=== PATIENT | male | born 1975 | race African-American/Black ===

== ENCOUNTER 2016-11-11 11:15 | Emergency (ER) | payer SELFPAY ==
[~2016-11-11] VITALS: Ht 165.1 cm; Wt 72.6 kg
[2016-11-11] MEDS ORDERED: diphenhydrAMINE 50 MG/ML VIAL IVP ONE (12:30)
[2016-11-11] MEDS ORDERED: IV NORMAL SALINE 1000ML BAG 1,000 ML IV ONE (12:30)
[2016-11-11] MEDS ORDERED: PROCHLORPERAZINE 10 MG/2 ML VIAL. IV ONE (12:30)
[2016-11-11 14:00] VITALS: BP 112/76
--- NOTE | 2016-11-11 14:09 | PHYS DOC ---
Past Medical History Past Medical History: Arthritis, Migraines Past Surgical History: Appendectomy, Knee Replacement Alcohol Use: None Drug Use: None Adult General Chief Complaint Chief Complaint: HEADACHE HPI HPI Patient is a 41 year old male who presents self complains of migraines similar to previous. Patient has been expressing migraines since the teenage years. Patient is also being his first symptoms of dehydration. Patient has no other complaints. Review of Systems Review of Systems Constitutional: Denies fever or chills [] Eyes: mild blurry vision HENT: Denies nasal congestion or sore throat [] denies neck pain Respiratory: Denies cough or shortness of breath [] Cardiovascular: No chest pain GI: Denies abdominal pain, Musculoskeletal: Denies back pain or joint pain [] Integument: Denies rash or skin lesions [] Neurologic: Headache. Denies focal weakness. Denies problems with ambulation Current Medications Current Medications Current Medications Medications (Trade) Dose Ordered Sig/Jorge Start Time Stop Time Status Last Admin Dose Admin Diphenhydramine HCl (Benadryl) 25 mg 1X ONCE 11/11/16 12:30 11/11/16 12:31 DC 11/11/16 12:17 25 MG Prochlorperazine Edisylate (Compazine) 10 mg 1X ONCE 11/11/16 12:30 11/11/16 12:31 DC 11/11/16 12:17 10 MG Sodium Chloride 1,000 ml @ 1,000 mls/hr 1X ONCE 11/11/16 12:30 11/11/16 13:29 DC 11/11/16 12:18 1,000 MLS/HR Allergies Allergies Allergies Coded Allergies Type Severity Reaction Last Updated Verified No Known Drug Allergies 11/11/16 No Physical Exam Physical Exam Constitutional: Well developed, well nourished, no acute distress, non-toxic appearance. [] HENT: Normocephalic, atraumatic, oropharynx moist, no oral exudates, nose normal. [] Eyes: PERRLA, EOMI, conjunctiva normal, no discharge. [] Neck: Normal range of motion, no tenderness, supple, no stridor. No meningeal signs, no LAD Cardiovascular:Heart rate regular rhythm, no murmur normal perfusion Lungs & Thorax: Bilateral breath sounds clear to auscultation [] Abdomen: Bowel sounds normal, soft, no tenderness, no masses, no pulsatile masses. [] Skin: Warm, dry, no erythema, no rash. [] Back: Normal range of motion Extremities: No tenderness, no cyanosis, no clubbing, ROM intact, no edema. [] Neurologic: Alert and oriented X 3, normal motor function, no focal deficits noted. [] Psychologic: Affect normal, judgement normal, mood normal. [] Current Patient Data Vital Signs Vital Signs Date Time Temp Pulse Resp B/P (MAP) Pulse Ox O2 Delivery O2 Flow Rate FiO2 11/11/16 11:40 98.5 58 18 113/71 (85) 98 Room Air 98.5 EKG EKG [] Radiology/Procedures Radiology/Procedures [] Course & Med Decision Making Course & Med Decision Making Pertinent Labs and Imaging studies reviewed. (See chart for details) 1407 patient states at this time his headache is relieved, feels ready to go home. Patient is to be discharged in stable and improved condition. [] Dragon Disclaimer Dragon Disclaimer This electronic medical record was generated, in whole or in part, using a voice recognition dictation system. Departure Departure Impression: Primary Impression: Migraine Additional Impression: Dehydration Disposition: 01 HOME, SELF-CARE Condition: IMPROVED Referrals: NO PCP (PCP) please follow up with your pcp or one of the local cliinics to establish care ( list provided to you) Patient Instructions: Dehydration, Adult, [id number], Migraine Headache, Easy -to-Read Problem Qualifiers Wallace LÓPEZ MD Nov 11, 2016 14:09
== END 2016-11-11 14:40 | disposition home or self-care (01) ==
LOC: ER 11:15
DX: G43.909 Migraine, unspecified, not intractable, without status migrainosus (principal); E86.0 Dehydration; M19.90 Unspecified osteoarthritis, unspecified site
CPT/HCPCS: 96361; 96374; 96375; 99284; J0780; J1200; J7030

== ENCOUNTER 2019-02-08 18:23 | Emergency (ER) | payer SELFPAY ==
[~2019-02-08] VITALS: Ht 165.1 cm; Wt 71.7 kg
[~2019-02-08 18:23] MED LIST: AMOX1TAB61 PO
[2019-02-08] MEDS ORDERED: KETOROLAC 30 MG/ML VIAL. IVP ONE (19:00)
[2019-02-08] MEDS ORDERED: IV NORMAL SALINE 1000ML BAG 1,000 ML IV ONE (19:00)
[2019-02-08] MEDS ORDERED: diphenhydrAMINE 50 MG/ML VIAL IVP ONE (19:00)
[2019-02-08] MEDS ORDERED: ONDANSETRON PF 4 MG/2 ML VIAL. IV ONE (19:00)
[2019-02-08] MEDS ORDERED: ONDA4TAB7 PO (20:17)
[2019-02-08] MEDS ORDERED: BUTA1CAP31 PO (20:17)
--- NOTE | 2019-02-08 20:18 | PHYS DOC ---
Past Medical History Past Medical History: Arthritis, Migraines Past Surgical History: Appendectomy, Knee Replacement Additional Information: 0.25 PPD Alcohol Use: None Drug Use: None Adult General Chief Complaint Chief Complaint: migraine headache HPI HPI Patient is a 44 year old male who presents via EMS with complaining of migraine headache. Patient complaining of gradual onset of left temporal headache that started about 4 hours prior to arrival as a constant and throbbing pain like his previous episodes of migraine headache. Patient rated his pain 9 on the states he took ibuprofen when the pain was started without improvement of his pain. Patient complaining of nausea without vomiting, focal neuro deficit, fever and chills, head injury. Patient also complaining of chronic dental pain in left upper and lower jaw without problem with swallowing. Review of Systems Review of Systems Constitutional: Denies fever or chills [] Eyes: Denies change in visual acuity, redness, or eye pain [] HENT: Denies nasal congestion or sore throat [] Respiratory: Denies cough or shortness of breath [] Cardiovascular: No additional information not addressed in HPI [] GI: Denies abdominal pain, vomiting, bloody stools or diarrhea [] : Denies dysuria or hematuria [] Musculoskeletal: Denies back pain or joint pain [] Integument: Denies rash or skin lesions [] Neurologic: Denies focal weakness or sensory changes, reports headache [] Endocrine: Denies polyuria or polydipsia [] All other systems were reviewed and found to be within normal limits, except as documented in this note. Current Medications Current Medications Current Medications Medications (Trade) Dose Ordered Sig/Jorge Start Time Stop Time Status Last Admin Dose Admin Diphenhydramine HCl (Benadryl) 50 mg 1X ONCE 02/08/19 19:00 02/08/19 19:01 DC 02/08/19 19:02 50 MG Ketorolac Tromethamine (Toradol 30mg Vial) 30 mg 1X ONCE 02/08/19 19:00 02/08/19 19:01 DC 02/08/19 19:02 30 MG Ondansetron HCl (Zofran) 4 mg 1X ONCE 02/08/19 19:00 02/08/19 19:01 DC 02/08/19 19:02 4 MG Sodium Chloride 1,000 ml @ 1,000 mls/hr 1X ONCE 02/08/19 19:00 02/08/19 19:59 DC 02/08/19 19:01 1,000 MLS/HR Allergies Allergies Allergies Coded Allergies Type Severity Reaction Last Updated Verified No Known Drug Allergies 11/11/16 No Physical Exam Physical Exam Constitutional: Well developed, well nourished, mild distress, non-toxic appearance. [] HENT: Normocephalic, atraumatic, extensive dental caries without abscess or inflammation. Eyes: PERRLA, EOMI, conjunctiva normal, no discharge. [] Neck: Normal range of motion, no tenderness, supple, no stridor. [] Cardiovascular:Heart rate regular rhythm, no murmur [] Lungs & Thorax: Bilateral breath sounds clear to auscultation [] Abdomen: Bowel sounds normal, soft, no tenderness, no masses, no pulsatile masses. [] Skin: Warm, dry, no erythema, no rash. [] Back: No tenderness, no CVA tenderness. [] Extremities: No tenderness, no cyanosis, no clubbing, ROM intact, no edema. [] Neurologic: Alert and oriented X 3, no focal deficits noted. [] Psychologic: Affect normal, judgement normal, mood normal. [] Current Patient Data Vital Signs Vital Signs Date Time Temp Pulse Resp B/P (MAP) Pulse Ox O2 Delivery O2 Flow Rate FiO2 02/08/19 18:23 99.0 77 20 140/76 (97) 100 Room Air 99.0 EKG EKG [] Radiology/Procedures Radiology/Procedures [] Course & Med Decision Making Course & Med Decision Making Evaluation of patient in ER showed 44-year-old male patient brought in by EMS because of migraine headache that started a few hours ago and did not get better with ibuprofen. Patient had unremarkable physical exam except for extensive dental caries patient treated with IV fluid, Toradol, Zofran and Benadryl improvement of his pain. Patient was advised to quit smoking and follow up with a dentist regarding his dental caries. Dragon Disclaimer Dragon Disclaimer This electronic medical record was generated, in whole or in part, using a voice recognition dictation system. Departure Departure Impression: Primary Impression: Migraine headache Additional Impressions: Dental caries Tobacco abuse Tobacco abuse counseling Disposition: HOME, SELF-CARE (2012) Condition: IMPROVED Referrals: NO PCP (PCP) Patient Instructions: Dental Pain, Migraine Headache, Smoking Cessation, Tips For Success Additional Instructions: Drink plenty of liquids Follow-up with your primary care physician in 3-5 days Return to ER if not getting better Follow-up with her dentist for dental pain and cavity Scripts Ondansetron Hcl (ZOFRAN) 4 Mg Tablet 1 TAB PO Q6HRS, #20 TAB Prov: ASAD BUNDY MD 02/08/19 Butalbital/Aspirin/Caffeine (FIORINAL 50-325-40 MG CAPSULE) 1 Each Capsule 1 EACH PO QID PRN for HEADACHE, #20 CAP Prov: ASAD BUNDY MD 02/08/19 Problem Qualifiers Primary Impression: Migraine headache Migraine type: unspecified Status migrainosus presence: without status migrainosus Intractability: not intractable Qualified Codes: G43.909 - Migraine, unspecified, not intractable, without status migrainosus ASAD BUNDY MD Feb 08, 2019 20:18
[2019-02-08 20:49] VITALS: BP 121/73
== END 2019-02-08 20:51 | disposition home or self-care (01) ==
LOC: ER 18:23
DX: G43.909 Migraine, unspecified, not intractable, without status migrainosus (principal); K02.9 Dental caries, unspecified; Z71.6 Tobacco abuse counseling; M19.90 Unspecified osteoarthritis, unspecified site; F17.200 Nicotine dependence, unspecified, uncomplicated; Z90.89 Acquired absence of other organs; Z96.659 Presence of unspecified artificial knee joint
CPT/HCPCS: 96374; 96375; 99284; J1200; J1885; J2405; J7030